=== PATIENT | male | born 1975 | race Caucasian/White ===

== ENCOUNTER 2022-06-20 09:40 | Emergency (ER) | payer OTHER, SELFPAY ==
[2022-06-20 09:42] VITALS: BP 134/92; PULSE 85; RESP 14; TEMP 36.1; O2SAT 100; BMI 23.9
--- NOTE | 2022-06-20 10:20 | CT_ITS ---
EXAM: CT ABDOMEN AND PELVIS WITH INTRAVENOUS CONTRAST CLINICAL INDICATION: infection feeding tube TECHNIQUE: Helically acquired images were obtained of the abdomen and pelvis with intravenous contrast. This CT exam was performed using one or more of the following dose reduction techniques: automated exposure control, adjustment of the mA and/or kV according to patient size, and/or use of iterative reconstruction technique. This report was created using [employer] report generation technology. CONTRAST: IV 100mL Isovue-300 COMPARISON: None. FINDINGS: LOWER THORAX: Normal. Lung bases are clear. No cardiomegaly. No pericardial effusion. ABDOMEN: LIVER: Normal. Homogeneous. No focal mass. GALLBLADDER AND BILE DUCTS: Normal. No calcified gallstones. No gallbladder distention or wall edema. No intra- or extrahepatic biliary ductal dilation. PANCREAS: Normal. No focal cystic or solid mass. SPLEEN: Normal. Normal size without focal cystic or solid mass. ADRENALS: Normal. No nodules. KIDNEYS AND URETERS: Normal. Normal renal size and position. No hydronephrosis. STOMACH AND BOWEL: Normal. No bowel distention. No focal inflammatory change. PELVIS: APPENDIX: Appendix is visualized and normal in appearance. BLADDER: Normal. REPRODUCTIVE: Unremarkable as visualized. No mass. ABDOMEN and PELVIS: INTRAPERITONEAL SPACE: Normal. No ascites or other fluid collection. No free air. BONES/JOINTS: No suspicious lytic or blastic abnormality. SOFT TISSUES: No abdominal or pelvic wall hernia. VASCULATURE: Normal. Abdominal aorta is non-dilated. LYMPH NODES: Normal. No enlarged lymph nodes. TUBES, LINES AND DEVICES: Gastrostomy tube in place. Mild thickening of the anterior abdominal wall at the G-tube insertion site without discrete evidence of abscess. CT/Abdomen/Pelvis W IV Cont ONLY IMPRESSION: Gastrostomy tube in place associated with localized thickening of the abdominal wall at the insertion site. No discrete evidence of abscess. Electronically Signed: Luis E Santana MD at 11:30 EDT ,
--- NOTE | 2022-06-20 10:27 | EDS_ITS ---
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 He states he completed his treatments 3 months ago but he is now going to [facility] for follow- up. 2 days ago he noted some redness and drainage around his feeding tube. He is still using his tube primarily for all intake. He denies fever or chills. PFSH PFS Medical History Cancer of nasal cavities Leaking PEG tube Home Medications doxycycline monohydrate 100 mg capsule 100 mg PO BID #20 CAPSULES 06/20/22 [Rx Last Taken Unknown] Allergy/AdvReac Type Severity Reaction Status Date / Time No Known Allergies Allergy Verified 06/20/22 09:42 Social History Smoking Status: Former smoker ROS ROS ED Constitutional Constitutional ED: Denies chills or fever(s) Eyes Eyes: Denies change in vision or discharge from eye(s) ENT ENT ED: Denies discharge from eye(s), rhinorrhea or sore throat Cardiovascular Cardiovascular: Denies chest pain or palpitations Respiratory/Chest Respiratory/Chest: Denies cough or dyspnea Gastrointestinal Gastrointestinal: Reports abdominal pain; Denies diarrhea, nausea or vomiting Genitourinary Genitourinary ED: Denies dysuria Musculoskeletal Musculoskeletal: Denies back pain or extremity pain Integumentary Denies Abrasions or rash Neurologic Neurologic: Denies headache(s) or weakness Psychiatric Psychiatric: Denies anxiety or depression Allergic/Immunologic Allergic/Immunologic ED: Denies lip swelling or urticaria EXAM Physical Exam Const Vital Signs: 06/20/22 09:42 Temperature 97 F L Temperature Source Temporal Pulse Rate 85 Respiratory Rate 14 Blood Pressure 134/92 H Blood Pressure Mean 106 Pulse Ox 100 Oxygen Delivery Method Room Air Positive well nourished and well developed General Appearance ED: well developed HEENT Reports normocephalic and head/scalp atraumatic Eyes PERRL and EOMs intact bilaterally Neck supple Chest Wall inspection of chest normal and palpation of chest normal Resp normal respiratory effort and clear to auscultation bilaterally Cardio regular rate and regular rhythm GI GI Narrative: PEG tube in place. Skin erythema around the PEG tube site with yellow-colored mucus-like discharge. No palpable masses. Abdomen is overall soft and nontender. Palpation: soft Extremity normal to inspection Neuro oriented x3 and no sensory deficits noted Sensorium / Orientation: alert Motor Exam: strength 5/5 throughout Psych mental status grossly normal Skin no rashes or lesions noted MDM MDM MDM Narrative Medical decision making narrative: Labwork obtained to evaluate for leukocytosis, anemia, and electrolyte derangement. CT scan of the abdomen and pelvis obtained to ensure no Lab Data Attestation: I reviewed the patient's lab results. Labs: Laboratory Results - last 24 hr 06/20/22 06/20/22 10:35 10:35 WBC 7.3 RBC 3.29 L Hgb 9.7 L Hct 30.5 L MCV 92.7 MCH 29.5 MCHC 31.8 L RDW Std Deviation 41.1 RDW Coeff of Lily 12.2 Plt Count 224 MPV 10.1 Immature Gran % (Auto) 0.400 Neut % (Auto) 82.5 H Lymph % (Auto) 7.1 L Power % (Auto) 8.5 Eos % (Auto) 1.2 Baso % (Auto) 0.3 Absolute Neuts (auto) 6.0 Absolute Lymphs (auto) 0.52 L Nucleated RBC % 0 Sodium 138 Potassium 4.0 Chloride 104 Carbon Dioxide 30.0 Anion Gap 4 L BUN 17 Creatinine 0.86 Estim Creat Clear Calc 101.63 Est GFR (MDRD) Af Amer 122 Est GFR (MDRD) Non-Af 101 BUN/Creatinine Ratio 19.8 Glucose 107 H Calcium 9.3 Radiography Diagnostic Testing: Clinical Impression(s) from Imaging Studies Abdomen/Pelvis CT 06/20/22 10:20 IMPRESSION: Gastrostomy tube in place associated with localized thickening of the abdominal wall at the insertion site. No discrete evidence of abscess. Electronically Signed: Luis E Santana MD at 11:30 EDT , Treatment and Re-Evaluation :: Lab work reveals normal white count. Hemoglobin 9.7. No prior values to compare to. Chemistry studies unremarkable. CT scan of the abdomen and pelvis revealed gastrostomy tube in place with localized thickening of the abdominal wall at the insertion site. No evidence of deep abscess. Patient will be given doxycycline. He has follow-up scheduled later this month. Return instructions given. Discharge Plan Triage Chief Complaint: Complaint ED Provider: Madison Tobar Dx/Rx/DC Orders Clinical Impression: Cellulitis Instructions: ED Cellulitis Prescriptions: New doxycycline monohydrate 100 mg capsule 100 mg PO BID Qty: 20 0RF Primary Care Provider: Noel Raphael Referrals: Noel Raphael MD [Primary Care Provider] - Disposition Disposition: Home, Self Care
[2022-06-20 10:49] LABS: Absolute Lymphocyte Count 0.52 X10^3/uL (0.83-4.51); Basophil# 0.02 X10^3/uL; Basophil% 0.3 % (0-1); Eosinophil# 0.09 X10^3/uL; Eosinophils% 1.2 % (0-5); Hematocrit 30.5 % (40-54); Hemoglobin 9.7 g/dL (13.0-16.5); Lymphocyte # 0.52 X10^3/ul (0.83-4.51); Lymphocyte % 7.1 % (19-41); Mean Corp Hgb Conc 31.8 g/dL (32-36); Mean Corpuscular Hgb 29.5 pg (27.0-32.0); Mean Corpuscular Volume 92.7 fL (80-94); Mean Platelet Vol. 10.1 fl (6.2-12.0); Monocyte# 0.62 X10^3/uL; Monocyte% 8.5 % (0-10); NRBC Flagged by Analyzer 0 % (0-5); Neutrophil % 82.5 % (47-70); POSITIVE DIFFERENTIAL YES; Platelet Count 224 K/mm3 (150-450); RBC Distribution Width CV 12.2 % (11.6-14.6); RBC Distribution Width SD 41.1 fl (35.1-43.9); Red Blood Count 3.29 M/mm3 (4.6-6.2); White Blood Count 7.3 K/mm3 (4.4-11.0)
[2022-06-20 10:55] LABS: Differential Indicated SCAN CRITERIA MET
[2022-06-20 11:01] LABS: Anion Gap 4 (5-15); BUN 17 mg/dL (7-18); BUN/Creat Ratio 19.8 RATIO (10-20); Calcium,Total 9.3 mg/dL (8.5-10.1); Chloride 104 mmol/L (98-107); Creatinine, Serum 0.86 mg/dL (0.70-1.30); EST Glomerular Filtration Rate 101 mL/min (>60); Est Glom Filt Rate - Afr Amer 122 mL/min (>60); Estimated Creatinine Clearance 101.63 ml/min; Glucose 107 mg/dL (74-106); Sodium Level 138 mmol/L (136-145)
[2022-06-20 12:32] VITALS: BP 113/68; PULSE 73; RESP 16; O2SAT 100
== END 2022-06-20 12:42 | disposition home or self-care (01) ==
PROVIDERS: Emergency Provider Emergency Medicine; PCP Family Medicine; Visit Provider Emergency Medicine
DX: L03.90 Cellulitis, unspecified (principal); Z93.1 Gastrostomy status; C76.0 Malignant neoplasm of head, face and neck; Z87.891 Personal history of nicotine dependence
CPT/HCPCS: 74177; 80048; 85025; 99283; Q9967

== ENCOUNTER 2022-07-16 01:27 | Emergency (ER) | payer OTHER, SELFPAY ==
[2022-07-16 01:28] VITALS: BP 128/78; PULSE 91; RESP 19; TEMP 37.3; O2SAT 98; BMI 22.4
--- NOTE | 2022-07-16 01:55 | RAD_ITS ---
EXAM: XR ABDOMEN, 1 VIEW CLINICAL INDICATION: PEG TUBE -- Gastrografin TECHNIQUE: Frontal supine view of the abdomen/pelvis. This report was created using [employer] report [employer] technology. COMPARISON: None. FINDINGS: LOWER THORAX: No acute pathology. GASTROINTESTINAL TRACT: No distended small bowel loops are noted. Scattered gas and fecal material noted within the colon. ORGANS: Unremarkable as visualized. No organomegaly. No abnormal calcifications. BONES/JOINTS: No acute pathology. SOFT TISSUES: No acute pathology. TUBES, LINES AND DEVICES: Inflated balloon on the tip of the percutaneous gastrostomy tube lies within the gastric lumen at the level of the distal gastric body. Injected contrast fills the stomach, passing through the pylorus into the proximal small bowel loops. No extravasation of contrast into the peritoneal cavity is seen to indicate leakage. RAD/Abdomen Single View (Portable) IMPRESSION: Inflated balloon on the tip of the PEG tube is appropriately positioned within the gastric lumen. No extravasation of injected contrast is seen to indicate leakage. Electronically Signed: Jeremias Solomon MD at 2:35 EDT ,
--- NOTE | 2022-07-16 01:56 | EX.ED.GENINJ ---
HPI History of Present Illness Chief Complaint: Other, Pain/Inj Narrative Narrative: 47-year-old male with PEG tube displacement. He states he had it wrapped earlier in it was irritating him so he took the wrap off and then subsequently he noted that the PEG tube fell out. This was placed about 8 months ago. This initially placed at [place]. Patient states he follows with [facility] at this time. He states initially this was placed because he had nasal cancer. He is doing his treatments. He states he does not use his PEG tube all the time. He is starting to eat again. PFSH PFS Medical History Cancer of nasal cavities Leaking PEG tube Home Medications doxycycline monohydrate 100 mg capsule 100 mg PO BID #20 CAPSULES 06/20/22 [Rx Last Taken Unknown] Allergy/AdvReac Type Severity Reaction Status Date / Time No Known Allergies Allergy Verified 07/16/22 01:28 Social History Smoking Status: Former smoker ROS ROS ED Constitutional Constitutional ED: Denies chills, fever(s) or sweats Eyes Eyes: Denies blurry vision or change in vision ENT ENT ED: Denies ear pain or sore throat Cardiovascular Cardiovascular: Denies chest pain, palpitations or racing heartbeat Respiratory/Chest Respiratory/Chest: Denies cough, dyspnea or sputum Gastrointestinal Gastrointestinal: Denies abdominal pain, constipation, diarrhea, nausea or vomiting Genitourinary Genitourinary ED: Denies dysuria, hematuria or urinary frequency Musculoskeletal Musculoskeletal: Denies arthralgias, myalgias or neck pain Integumentary Denies abscess, Abrasions or rash Neurologic Neurologic: Denies headache(s), paresthesias or weakness Psychiatric Psychiatric: Denies anxiety, depression, suicidal ideation or suicidal thoughts Endocrine Endocrinology: Denies polydipsia or polyuria EXAM Physical Exam Const Vital Signs: 07/16/22 01:28 07/16/22 01:30 Temperature 99.1 F Temperature Source Temporal Pulse Rate 91 Respiratory Rate 19 H Respiratory Pattern Normal Blood Pressure 128/78 H Blood Pressure Mean 94 Pulse Ox 98 Oxygen Delivery Method Room Air Positive well nourished General Appearance ED: NAD Eyes PERRL Resp normal respiratory effort GI GI Narrative: Stoma site noted to the abdomen. Does not appear indurated. Well-healing. Mildly tender to palpation. No drainage. Neuro oriented x3 and CN's II-XII intact bilaterally Motor Exam: strength 5/5 throughout Psych mental status grossly normal Skin no rashes or lesions noted MDM MDM MDM Narrative Medical decision making narrative: Patient presents with PEG tube displacement. He has an 18-gauge which was placed. Does not use this all the time but he states he still wants to make sure it stays open. We do not have an 18 Kiswahili we have a 22 out of 24 but I do not think I can make these fit as his stoma is pretty tight. I did offer him Anne catheter 18-gauge to place in the stoma until he can follow-up with [facility] tomorrow he was amenable to this. This was placed without sequela. Patient tolerated procedure well. Will order KUB with Gastrografin. KUB with Gastrografin shows appropriate positioning of the balloon tip on my interpretation. Appears to be in the gastric lumen. Radiology interpretation agrees. Patient discharged home in stable condition. He is to follow-up with [facility] tomorrow in order to get an appropriate PEG tube placement. He acknowledged understanding of this. Discharged home in stable condition. Impression: PEG tube displaced Radiography Diagnostic Testing: Clinical Impression(s) from Imaging Studies KUB X-Ray 07/16/22 01:55 IMPRESSION: Inflated balloon on the tip of the PEG tube is appropriately positioned within the gastric lumen. No extravasation of injected contrast is seen to indicate leakage. Electronically Signed: Jeremias Solomon MD at 2:35 EDT , Discharge Plan Triage Chief Complaint: Other, Pain/Inj ED Provider: Uday Hayes Dx/Rx/DC Orders Instructions: ED Feeding Tube Replacement Prescriptions: No Action doxycycline monohydrate 100 mg capsule 100 mg PO BID Qty: 20 0RF Primary Care Provider: Noel Raphael Referrals: Noel Raphael MD [Primary Care Provider] - Disposition Disposition: Home, Self Care
== END 2022-07-16 02:40 | disposition home or self-care (01) ==
PROVIDERS: Emergency Provider Student in an Organized Health Care Education/Training Program; PCP Family Medicine; Visit Provider Student in an Organized Health Care Education/Training Program
DX: K94.23 Gastrostomy malfunction (principal); C76.0 Malignant neoplasm of head, face and neck; Z87.891 Personal history of nicotine dependence
CPT/HCPCS: 43762; 74018; 99282; A4216